=== PATIENT | female | born 1995 | race Caucasian/White ===

== ENCOUNTER 2018-01-18 11:30 | Inpatient (IN) ==
[2018-01-18] MEDS ORDERED: Oxytocin 30 Units/500ml Premix 30 UNITS/500 ML BAG IV.SIG ONE (12:09)
[2018-01-18] MEDS ORDERED: Sod Chloride 0.9% Inj 1,000 ML IV.CONT PRN (12:09)
[2018-01-18] MEDS ORDERED: Sodium Chlor 0.9% Inj 500 ML IV.SIG PRN (12:09)
[2018-01-18] MEDS ORDERED: Naloxone Inj 0.4 MG/ML Vial IV.PUSH PRN (12:09)
[2018-01-18] MEDS ORDERED: fentaNYL Citrate Inj 100 MCG/2 ML Ampul IV.PUSH PRN ×2 (12:09)
--- NOTE | 2018-01-18 12:09 | ED ---
History of Present Illness Primary Care Physician: Do Neema Carmen Chief Complaint: Sent from clinic for induction History of Present Illness: 22-year-old female at 41/0 weeks gestation with history of HSV, on Valtrex , presents the OB ED for induction. Patient was seen at clinic earlier today and found to have a cervical check of -/-2 with plans for induction tomorrow and was told to come to the hospital today. Patient states that she is not feeling any contractions, no loss of fluids, no vaginal bleeding, no decreased movement. Patient states that her labs have been negative thus far including, a negative GBS. Patient has a history of HSV, on prophylactic Valtrex she has had no outbreaks since 4 months of and denies lesions or pain currently. Patient denies headaches, change in vision, nausea, vomiting, chest pain, shortness of breath, abdominal pain, back pain, leg swelling or pain. history: First and second miscarriages at 8 and 5 weeks respectively. No complications during this . Past medical history: HSV positive, on prophylactic Valtrex. Last outbreak was at 4 months of . No outbreak since then. Medications: Valtrex Allergies: An NKDA Surgical history: [place] tooth removal 8-10 years ago. Hospitalizations: None Social history: Non-smoker, denies alcohol or drug use during this . Recently moved from [place] about 5 weeks ago. Had care in [place] until 5 weeks ago. Now sees Dr. Mcmahon at [facility] for care Review of Systems All other systems reviewed negative except as stated in HPI [facility] - History History Provided By: Patient - Tobacco History Smoking Status: Never smoker - Alcohol History How Often Do You Have a Drink Containing Alcohol: Never - Substance Use History Substance History: No History of Abuse - Travel History History of Recent Travel: No Recent Travel in the [place] Within the Last 8 Weeks: No Recent Travel Out of the Country Within the Last 8 Weeks: No Medications and Allergies Allergies Allergy/AdvReac Type Severity Reaction Status Date / Time No Known Allergies Allergy Verified 01/18/18 12:04 Home Medications Medication Instructions Recorded Confirmed Type vit,[id number] 1 tab PO DAILY 01/18/18 01/18/18 History [PNV 29-1] valacyclovir [Valtrex] 1,000 mg PO BID 01/18/18 01/18/18 History Exam Vital signs: Intake & Output 01/17/18 01/18/18 01/18/18 18:59 06:59 18:59 Weight 78.018 kg Narrative: GENERAL: Well-nourished, well-developed patient. SKIN: Warm and dry. HEAD: Normocephalic and atraumatic. EYES: No scleral icterus. No injection or drainage. ENT: No nasal drainage noted. Mucous membranes pink. Airway patent. CARDIOVASCULAR: Regular rate and rhythm without murmurs, gallops, or rubs. RESPIRATORY: Breath sounds equal bilaterally. No accessory muscle use. ABDOMEN/GI: Abdomen soft, non-tender, bowel sounds present, no rebound, no guarding Gravid to 40 weeks size GENITOURINARY: External Genitalia: intact and normal in appearance. No lesions. Cervix: posterior Dilatation: 1-2 Effacement: 50% Station: -2 Presentation: vertex Membranes: intact Uterine Contractions: none FHT's: Category: 1 Baseline: 120s Reactive: y Variability: moderate Decels: none, positive accelerations EXTREMITIES: No cyanosis or edema. No calf pain NEUROLOGICAL: Awake and alert. Motor and sensory grossly within normal limits. Five out of 5 muscle strength in all muscle groups. Normal speech. Assessment and Plan - Diagnosis (1) 41 weeks gestation of Code(s): O36.8190 - Decreased movements, unspecified trimester, not applicable or unspecified Status: Acute (2) Post-dates Code(s): Z3A.40 - 40 weeks gestation of Status: Acute - Plan 22-year-old female at 41/0 weeks gestation with history of HSV, on Valtrex , presents the OB ED for induction. -Continuous monitoring, FHT category 1, reassuring -Cervical check performed: 2 -Admit to L&D for induction of labor sdw Dr. Todd and Dr. Fowler Discharge Plan - Physicians Team ED Provider: Nir Fowler Primary Care Provider: Do Neema Carmen - Rxs /Orders / Referrals /Forms Prescriptions: No Action vit,[id number] [PNV 29-1] 29 mg iron- 1 mg Tablet 1 tab PO DAILY valacyclovir [Valtrex] 1 gram Tablet 1,000 mg PO BID - Discharge Instructions Print Language: Arabic
[2018-01-18] MEDS ORDERED: Citric Acid/Sodium Citrate Liq 30 ML UDC PO SCH (12:15)
[2018-01-18 14:02] LABS: Baso # (Auto) 0.1 th/mm3 (0.0-0.2); Baso % (Auto) 0.6 % (0.0-2.0); Eos % (Auto) 0.1 % (0.0-4.0); Hematocrit 36.9 % (35.0-46.0); Hemoglobin 12.7 gm/dL (11.6-15.3); Lymph # (Auto) 1.9 th/mm3 (1.0-4.8); Mean Corpuscular HGB Conc 34.4 % (32.0-36.0); Mean Corpuscular Hemoglobin 34.8 pg (27.0-34.0); Mean Corpuscular Volume 101.3 fL (80.0-100.0); Mean Platelet Volume 9.3 fL (7.0-11.0); Mono # (Auto) 0.6 th/mm3 (0.0-0.9); Mono % (Auto) 7.8 % (0.0-8.0); Neut # (Auto) 5.6 th/mm3 (1.8-7.7); Neut % (Auto) 68.5 % (16.0-70.0); Platelet Count 206 th/mm3 (150-450); Red Blood Count 3.64 mil/mm3 (4.00-5.30); Red Cell Distribution Width 12.6 % (11.6-17.2); White Blood Count 8.1 th/mm3 (4.0-11.0)
[2018-01-18 14:10] LABS: Amphetamine Urine With Conf Neg (Neg); Benzodiazepine Urine With Conf Neg (Neg); Cocaine Urine With Conf Neg (Neg); Opiates Urine With Conf Neg (Neg)
[2018-01-18 14:13] LABS: Cannabinoid Urine With Conf Neg (Neg)
[2018-01-18 14:16] LABS: Bacteria,Urine Occasional /hpf; Bilirubin,Urine Negative (Negative); Color,Urine Yellow (Yellw/Straw); Glucose,Urine (UA) Negative (Negative); Leukocyte Esterase,Urine Negative (Negative); Mucus,Urine Moderate /lpf (Occasional); Nitrite,Urine Negative (Negative); Specific Gravity,Urine 1.027 (1.002-1.035); Squamous Epithelial Cell,Urine 3 /hpf (0-5)
[2018-01-18 14:19] LABS: Clarity,Urine Hazy (Clear)
[2018-01-18] MEDS: valACYclovir 500 MG Tab PO SCH (22:15)
[2018-01-19] MEDS ORDERED: fentaNYL 2MCG-Bupiv 0.125% Epi 150 ML EPIDURAL ONE (03:26)
[2018-01-19] MEDS ORDERED: Lidocaaine 1.5%/Epinephrine 1:200,000 PF Inj 5 ML Amp ONE (03:31)
[2018-01-19] MEDS ORDERED: Lidocaine PF 1% Inj 10 ML Amp ONE (03:31)
[2018-01-19] MEDS ORDERED: fentaNYL 2MCG-Bupiv 0.125% Epi 150 ML EPIDURAL PRN (06:03)
[2018-01-19] MEDS ORDERED: fentaNYL Citrate Inj 100 MCG/2 ML Ampul EPIDURAL ONE (06:03)
[2018-01-19] MEDS ORDERED: Oxytocin 30 Units/500ml Premix 30 UNITS/500 ML BAG ONE (06:40)
[2018-01-19] MEDS ORDERED: Lidocaine 1% Inj 50 ML Vial ONE (07:18)
[2018-01-19] MEDS ORDERED: Acetaminophen 325 MG Tablet PO PRN (07:46)
[2018-01-19] MEDS ORDERED: Naloxone Inj 0.4 MG/ML Vial IV.PUSH PRN (07:46)
[2018-01-19] MEDS ORDERED: Benzocaine 20% Top Spray 60 ML Can TOPICAL PRN (07:46)
[2018-01-19] MEDS ORDERED: Oxytocin 30 Units/500ml Premix 30 UNITS/500 ML BAG IV.CONT PRN (07:46)
[2018-01-19] MEDS ORDERED: Zolpidem Tartrate 5 MG Tablet PO PRN (07:46)
[2018-01-19] MEDS ORDERED: Bisacodyl 10 MG Supp RECTAL PRN (07:46)
--- NOTE | 2018-01-19 07:50 | P.OBDELI ---
Weeks Gestation: 41 Artificial Rupture of Membrane: Yes Anesthesia: Epidural, Lidocaine local to perineum Episiotomy: none Vaginal Delivery: Normal Presentation: Occiput anterior, Vertex Nuchal Cord: None Delayed Cord Clamping (45 sec): Yes Placenta: Spontaneous delivery, Intact, 3 vessel cord Laceration: Vaginal (1st degree left, anterior vaginal laceration), Perineal, 1 deg Repair: Chromic running Estimated blood loss (mL): 150 Infant: Male Infant Male A Delivery Date: 01/19/18 Delivery Time: 07:08 Weight: 3.655 kg score (1 min): 9 score (5 min): 9
[2018-01-19] MEDS: Witch Hazel 50%/Glyderin 12.5% 40 Pad Jar RECTAL PRN (09:06)
[2018-01-19] MEDS: Senna/Docusate Sodium 8.6/50 MG Tablet PO SCH ×2 (11:38→22:12)
[2018-01-19] MEDS: Prenatal Vit/Ca/Iron/Folic Acid Tablet PO SCH (11:38)
[2018-01-19] MEDS ORDERED: Measles/Mumps/Rubella Vaccine Inj 0.5 ML Vial SQ ONE (16:00)
[2018-01-19] MEDS ORDERED: Diphtheria/Tetanus/Pertussis Vaccine Inj 0.5 ML Syringe IM ONE (16:00)
[2018-01-19] MEDS: valACYclovir 500 MG Tab PO SCH (22:06)
--- NOTE | 2018-01-20 08:10 | P.PNOB ---
Subjective Post day: 1 Interval history: day # 1. AFVSS overnight. Pain well-controlled with Motrin. Decreased lochia. Denies dysuria. No breast tenderness. She is feeding the baby via breast. Appetite good. No nausea or vomiting. Passing flatus. No bowel movements. Ambulating well. Denies calf pain, shortness of breath, or cough. Otherwise, she is doing well this morning and has no other complaints. Patient states that she would like to be discharged home with baby today. Due to limited access to outpatient pediatric Hospital discharge follow-up due to the holiday, will await pediatric team clearance of baby. Objective Vital Signs/I&O: Vital Signs 01/19/18 08:12 01/19/18 08:15 01/19/18 08:30 Temperature Pulse Rate 84 101 H Respiratory Rate 19 Blood Pressure 101/61 102/58 L 01/19/18 09:00 01/19/18 09:15 01/19/18 20:00 Temperature 97.6 F 98.7 F 98.8 F Pulse Rate 88 72 Respiratory Rate 20 20 Blood Pressure 103/59 L 113/65 Result Diagrams: 01/18/18 13:20 Objective Remarks: GENERAL: Well-nourished, well-developed patient. CARDIOVASCULAR: Regular rate and rhythm without murmurs, gallops, or rubs. RESPIRATORY: Breath sounds equal bilaterally. No accessory muscle use. ABDOMEN/GI: Bowel sounds present in all 4 quadrants. Abdomen soft, non-tender. Fundus: Firm, non-tender at umbilicus. GENITOURINARY: Light to moderate bleeding. EXTREMITIES: No cyanosis or edema, non-tender, without signs of DVT. Medications and IVs: Active Medications Acetaminophen (Tylenol) 650 mg PO Q4H PRN PRN Reason: PAIN SCALE 1 TO 2 Al Hydroxide/Mg Hydroxide (Milk Of Magnesia Liq) 30 ml PO Q12H PRN PRN Reason: Mild Constipation Benzocaine (Americaine 20% Top [place]) 1 spray TOPICAL Q4H PRN PRN Reason: For Perineum Discomfort Last Admin: 01/19/18 09:06 Dose: 1 spray Bisacodyl (Dulcolax Supp) 10 mg RECTAL DAILY PRN PRN Reason: SEVERE CONSITIPATION Fentanyl/Bupivacaine/Sodium Chlor (Fentanyl 2 Mcg-Bupiv 0.125% Epi) 150 mls @ 0 mls/hr EPIDURAL PRN PRN PRN Reason: for Labor Pain Last Admin: 01/19/18 08:10 Dose: 0 mls/hr Oxytocin (Pitocin 30 Units/Ns 500 Ml Premix) 30 units in 500 mls @ 100 mls/hr IV.CONT UNSCH PRN PRN Reason: Heavy bleeding Ibuprofen (Motrin) 800 mg PO Q8H PRN PRN Reason: For Cramping Last Admin: 01/20/18 01:52 Dose: 800 mg Lactulose (Lactulose Liq) 30 ml PO DAILY PRN PRN Reason: SEVERE CONSITIPATION Misoprostol (Cytotec) 25 mcg VAGINAL Q4H [facility] Last Admin: 01/19/18 11:39 Dose: Not Given Naloxone HCl (Narcan Inj) 0.1 mg IV.PUSH Q2M PRN PRN Reason: for opiate reversal Ondansetron HCl (Zofran Odt) 4 mg PO Q6H PRN PRN Reason: NAUSEA OR VOMITING Vit/Calcium/Iron/Folic Ac (Stuartnatal Plus 3) 1 tab PO DAILY [facility] Last Admin: 01/19/18 11:38 Dose: Not Given Senna/Docusate Sodium (Rozina-Colace) 1 tab PO BID [facility] Last Admin: 01/19/18 22:12 Dose: 1 tab Sennosides (Senokot) 17.2 mg PO Q12H PRN PRN Reason: Moderate Constipation Sodium Chloride (Ns Flush) 2 ml IV.FLUSH BID [facility] Last Admin: 01/19/18 22:07 Dose: 2 ml Sodium Chloride (Ns Flush) 2 ml IV.FLUSH PRN PRN PRN Reason: FLUSH AFTER USING IV ACCESS Valacyclovir HCl (Valtrex) 1,000 mg PO BID [facility] Last Admin: 01/19/18 22:06 Dose: Not Given Witch Catrachita/Glycerin (Tucks Pads) 1 applicatio RECTAL QID PRN PRN Reason: HEMORRHOIDS Last Admin: 01/19/18 09:06 Dose: 1 applicatio Zolpidem Tartrate (Ambien) 5 mg PO HS PRN PRN Reason: SLEEP Assessment and Plan - Diagnosis (1) 41 weeks gestation of Code(s): O36.8190 - Decreased movements, unspecified trimester, not applicable or unspecified Status: Acute (2) Normal vaginal delivery Code(s): O80 - Encounter for full-term uncomplicated delivery Status: Acute - Plan 22 y/o who is PPD# 1 s/p . -Continue routine care. -Tylenol and Motrin as needed for pain. -Encouraged OOB. Advised pelvic rest for 6 wks. -Will need a f/u appt. within 6 wks. -Contraception: she would like to continue to consider her options. -Patient would like to return home today, however, since baby is less than 24 hours old will await pediatric team clearance. Anticipate discharge tomorrow, or later this evening. [facility] OB attending, Dr. Le
[2018-01-20] MEDS: valACYclovir 500 MG Tab PO SCH (09:42)
[2018-01-20] MEDS: Senna/Docusate Sodium 8.6/50 MG Tablet PO SCH (09:42)
[2018-01-20] MEDS: Prenatal Vit/Ca/Iron/Folic Acid Tablet PO SCH (09:42)
[2018-01-20] MEDS: Witch Hazel 50%/Glyderin 12.5% 40 Pad Jar RECTAL PRN (11:07)
--- NOTE | 2018-01-21 07:57 | P.PNOB ---
Subjective Interval history: day # 2. AFVSS overnight. Pain well-controlled with Motrin. Decreased lochia. Denies dysuria. No breast tenderness. She is feeding the baby via breast. Appetite good. No nausea or vomiting. Passing flatus. No bowel movements. Ambulating well. Denies calf pain, shortness of breath, or cough. Otherwise, she is doing well this morning and has no other complaints. Objective Vital Signs/I&O: Vital Signs 01/20/18 08:00 01/20/18 20:00 Temperature 98.1 F 98.9 F Pulse Rate 20 L 84 Respiratory Rate 20 18 Blood Pressure 115/61 86/53 L Result Diagrams: 01/18/18 13:20 Objective Remarks: GENERAL: Well-nourished, well-developed patient. CARDIOVASCULAR: Regular rate and rhythm without murmurs, gallops, or rubs. RESPIRATORY: Breath sounds equal bilaterally. No accessory muscle use. ABDOMEN/GI: Abdomen soft, non-tender. Fundus: Firm, non-tender at umbilicus. GENITOURINARY: Light to moderate bleeding. EXTREMITIES: No cyanosis or edema, non-tender, without signs of DVT. Medications and IVs: Active Medications Acetaminophen (Tylenol) 650 mg PO Q4H PRN PRN Reason: PAIN SCALE 1 TO 2 Al Hydroxide/Mg Hydroxide (Milk Of Kaley Barros) 30 ml PO Q12H PRN PRN Reason: Mild Constipation Benzocaine (Americaine 20% Top [place]) 1 spray TOPICAL Q4H PRN PRN Reason: For Perineum Discomfort Last Admin: 01/19/18 09:06 Dose: 1 spray Bisacodyl (Dulcolax Supp) 10 mg RECTAL DAILY PRN PRN Reason: SEVERE CONSITIPATION Fentanyl/Bupivacaine/Sodium Chlor (Fentanyl 2 Mcg-Bupiv 0.125% Epi) 150 mls @ 0 mls/hr EPIDURAL PRN PRN PRN Reason: for Labor Pain Last Admin: 01/19/18 08:10 Dose: 0 mls/hr Oxytocin (Pitocin 30 Units/Ns 500 Ml Premix) 30 units in 500 mls @ 100 mls/hr IV.CONT UNSCH PRN PRN Reason: Heavy bleeding Ibuprofen (Motrin) 800 mg PO Q8H PRN PRN Reason: For Cramping Last Admin: 01/21/18 02:55 Dose: 800 mg Lactulose (Lactulose Liq) 30 ml PO DAILY PRN PRN Reason: SEVERE CONSITIPATION Misoprostol (Cytotec) 25 mcg VAGINAL Q4H [facility] Last Admin: 01/19/18 11:39 Dose: Not Given Naloxone HCl (Narcan Inj) 0.1 mg IV.PUSH Q2M PRN PRN Reason: for opiate reversal Ondansetron HCl (Zofran Odt) 4 mg PO Q6H PRN PRN Reason: NAUSEA OR VOMITING Vit/Calcium/Iron/Folic Ac (Stuartnatal Plus 3) 1 tab PO DAILY [facility] Last Admin: 01/20/18 09:42 Dose: 1 tab Senna/Docusate Sodium (Rozina-Colace) 1 tab PO BID [facility] Last Admin: 01/20/18 09:42 Dose: 1 tab Sennosides (Senokot) 17.2 mg PO Q12H PRN PRN Reason: Moderate Constipation Sodium Chloride (Ns Flush) 2 ml IV.FLUSH BID [facility] Last Admin: 01/19/18 22:07 Dose: 2 ml Sodium Chloride (Ns Flush) 2 ml IV.FLUSH PRN PRN PRN Reason: FLUSH AFTER USING IV ACCESS Valacyclovir HCl (Valtrex) 1,000 mg PO BID [facility] Last Admin: 01/20/18 09:42 Dose: 1,000 mg Witch Catrachita/Glycerin (Tucks Pads) 1 applicatio RECTAL QID PRN PRN Reason: HEMORRHOIDS Last Admin: 01/20/18 11:07 Dose: 1 applicatio Zolpidem Tartrate (Ambien) 5 mg PO HS PRN PRN Reason: SLEEP Assessment and Plan - Diagnosis (1) 41 weeks gestation of Code(s): O36.8190 - Decreased movements, unspecified trimester, not applicable or unspecified Status: Acute (2) Normal vaginal delivery Code(s): O80 - Encounter for full-term uncomplicated delivery Status: Acute - Plan 22 y/o who is PPD# 2 s/p . -Continue routine care. -Tylenol and Motrin as needed for pain. -Encouraged OOB. Advised pelvic rest for 6 wks. -Will need a f/u appt. within 6 wks. -Contraception: undecided, will discuss with PCP at visit -Anticipate discharge today dw OB attending, Dr. Fowler
== END 2018-01-21 10:58 | disposition home or self-care (01) ==
LOC: HOBED 11:30 → H2E 12:34 → HOBED 12:44 → H1EA 01-19 09:34
PROVIDERS: ADMIT Obstetrics & Gynecology Maternal & Fetal Medicine; ATTEND Obstetrics & Gynecology Maternal & Fetal Medicine